=== PATIENT | male | born 1970 | race Hispanic/Latino ===

== ENCOUNTER 2019-09-06 10:10 | Emergency (ER) | payer OTHER ==
[2019-09-06 10:23] VITALS: BP 176/97
[2019-09-06] MEDS ORDERED: ONDANSETRON 4 MG/2 ML INJ IV ONE (11:42)
[2019-09-06] MEDS ORDERED: MORPHINE 4 MG/1 ML INJ IV ONE ×2 (11:42→13:45)
[2019-09-06] MEDS ORDERED: KETOROLAC 30 MG/1 ML INJ IV ONE (11:42)
[2019-09-06] MEDS ORDERED: SODIUM CHLORIDE 0.9% 500 ML 500 ML IV ONE (11:42)
[2019-09-06] MEDS ORDERED: dexAMETHasone 20 MG/5 ML VIAL IV ONE (11:42)
--- NOTE | 2019-09-06 13:10 | Cat Scan Report ---
CT HEAD WITHOUT CONTRAST INDICATION / CLINICAL INFORMATION: severe headache. TECHNIQUE: All CT scans at this location are performed using CT dose reduction for ALARA by means of automated e xposure control. COMPARISON: None available. FINDINGS: HEMORRHAGE: No evidence of intracranial hemorrhage or extra-axial fluid collection. EXTRA-AXIAL SPACES: Cortical sulci, sylvian fissures and basilar cisterns have an unremarkable appear ance. VENTRICULAR SYSTEM: The ventricular system is of normal size and configuration. CEREBRAL PARENCHYMA: No areas of abnormal brain parenchymal attenuation are identified. There is no i ndication of recent infarction. MIDLINE SHIFT OR HERNIATION: There is no mass effect. CEREBELLUM / BRAINSTEM: Brainstem and cerebellum have an unremarkable appearance. INTRACRANIAL VESSELS:No abnormalities are identified on this noncontrast head CT. ORBITS: visualized portions of the orbits have an unremarkable appearance. SOFT TISSUES of HEAD: No significant abnormality. CALVARIUM: Evaluation of bone windows reveals no abnormalities. PARANASAL SINUSES / MASTOID AIR CELLS: Paranasal sinuses are free from inflammatory mucosal disease. Mastoid air cells are normally pneumatized. IMPRESSION: 1. No abnormalities are identified on head CT without contrast. Signer Name: Johnson Gonzalez MD Signed: 09/06/2019 1:06 PM Workstation Name: [id number]
--- NOTE | 2019-09-06 13:50 | Emergency Department Report ---
ED General Adult HPI - General Chief complaint: Headache Stated complaint: SEVERE HEADACHE Time Seen by Provider: 09/06/19 11:14 Source: patient Mode of arrival: Ambulatory Limitations: No Limitations - History of Present Illness Initial comments: Patient is a 49-year-old male with a past medical history of cluster headaches who states he's had increased headaches last several days. Patient has a history of taken Maxalt but is out of this medication. Patient states he took his other pain meds his morning with no relief of his symptoms. Patient states headache is worse with previous headaches since his medications usually do help take the edge off. Patient has some mild nausea but no vomiting. Patient denies neck stiffness fevers chills cough cold or congestion. Patient states the headache as a 10 out of 10 and is located on the right side. Severity scale (0 -10): 7 - Related Data Previous Rx's Medication Instructions Recorded Last Taken Type Ketorolac [Toradol] 10 mg PO Q6H PRN #12 tablet 09/06/19 Unknown Rx Ondansetron [Zofran Odt] 4 mg PO Q8HR #10 tab.rapdis 09/06/19 Unknown Rx Rizatriptan Benzoate [Maxalt] 10 mg PO PRN #10 tab 09/06/19 Unknown Rx Allergies Allergy/AdvReac Type Severity Reaction Status Date / Time No Known Allergies Allergy Unverified 09/06/19 10:12 ED Review of Systems ROS: Stated complaint: SEVERE HEADACHE Other details as noted in HPI Comment: All other systems reviewed and negative ED Past Medical Hx - Past Medical History Previous Medical History?: Yes Hx Headaches / Migraines: Yes - Surgical History Past Surgical History?: Yes Additional Surgical History: Left ACL. Right thumb reattachment. tonsilectomy - Social History Smoking Status: Former Smoker Substance Use Type: None - Medications Home Medications: Home Medications Medication Instructions Recorded Confirmed Last Taken Type Ketorolac [Toradol] 10 mg PO Q6H PRN #12 tablet 09/06/19 Unknown Rx Ondansetron [Zofran Odt] 4 mg PO Q8HR #10 tab.rapdis 09/06/19 Unknown Rx Rizatriptan Benzoate [Maxalt] 10 mg PO PRN #10 tab 09/06/19 Unknown Rx ED Physical Exam - General Limitations: No Limitations General appearance: alert, in no apparent distress - Head Head exam: Present: atraumatic, normocephalic - Eye Eye exam: Present: normal appearance, PERRL, EOMI - ENT ENT exam: Present: mucous membranes moist - Neck Neck exam: Present: normal inspection - Respiratory Respiratory exam: Present: normal lung sounds bilaterally. Absent: respiratory distress, wheezes, rales, rhonchi - Cardiovascular Cardiovascular Exam: Present: regular rate, normal rhythm. Absent: systolic murmur, diastolic murmur, rubs, gallop - GI/Abdominal GI/Abdominal exam: Present: soft, normal bowel sounds - Rectal Rectal exam: Present: deferred - Extremities Exam Extremities exam: Present: normal inspection - Back Exam Back exam: Present: normal inspection - Neurological Exam Neurological exam: Present: alert, oriented X3 - Psychiatric Psychiatric exam: Present: normal affect, normal mood - Skin Skin exam: Present: warm, dry, intact, normal color. Absent: rash ED Course Vital Signs 09/06/19 10:21 Temperature 97.8 F Pulse Rate 69 Respiratory 20 Rate Blood Pressure 176/97 O2 Sat by Pulse 98 Oximetry ED Medical Decision Making - Radiology Data CT head without contrast shows no acute process - Medical Decision Making Patient is a 49-year-old male who is presenting with severe headache. Patient's blood pressure slightly elevated. Patient states that his headache has changed in caliber. Because of the elevated blood pressure and change in his symptoms head CT was ordered to rule out endocranial bleed. CT was within normal limits. Patient headache has began to subside with medications given the patient be discharged home. Critical care attestation.: If time is entered above; I have spent that time in minutes in the direct care of this critically ill patient, excluding procedure time. ED Disposition Clinical Impression: Cluster headache Qualifiers: Headache chronicity pattern: episodic headache Intractability: not intractable Qualified Code(s): G44.019 - Episodic cluster headache, not intractable Disposition: DC-01 TO HOME OR SELFCARE Is pt being admited?: No Does the pt Need Aspirin: No Condition: Stable Instructions: Cluster Headache (ED) Referrals: PRIMARY CARE, [Referring] - 3-5 Days Time of Disposition: 13:48
== END 2019-09-06 14:11 | disposition home or self-care (01) ==
LOC: ED 10:10
DX: G44.009 Cluster headache syndrome, unspecified, not intractable (principal); Z87.891 Personal history of nicotine dependence
CPT/HCPCS: 70450; 96374; 96375; 96376; 99283; J1100; J1885; J2270; J2405; J7040